=== PATIENT | male | born 1960 | race Hispanic/Latino ===

== ENCOUNTER 2017-10-28 22:30 | Emergency (ER) | payer SELFPAY ==
[~2017-10-28] VITALS: Ht 152.4 cm; Wt 45.0 kg
[2017-10-28 23:49] VITALS: BP 120/67
== END 2017-10-28 23:49 | disposition home or self-care (01) | DRG 897 ==
LOC: ED 22:30
DX: F10.129 Alcohol abuse with intoxication, unspecified (principal)

== ENCOUNTER 2018-01-06 21:55 | Emergency (ER) | payer SELFPAY ==
[~2018-01-06] VITALS: Ht 147.3 cm; Wt 52.0 kg
[2018-01-06 22:31] LABS: HEMATOCRIT 36.7 % (39.0-50.0); HEMOGLOBIN 12.2 g/dl (14.0-18.0); IMMATURE GRANULOCYTES 0.7 % (0.0-5.0); MEAN CELL VOLUME 93.9 fL CALC (80.0-100.0); MEAN CORPUSCULAR HGB 31.2 pG CALC (26.0-32.0); MEAN CORPUSCULAR HGB CONC 33.2 g/L CALC (32.0-36.0); NEUT# 3.33 thou/uL (1.82-7.42); RED BLOOD COUNT 3.91 mill/uL (4.70-6.10); RED CELL DISTRI WIDTH 13.2 % (11.5-15.5)
[2018-01-06 22:32] LABS: URINE BILIRUBIN - DIPSTICK NEGATIVE (NEGATIVE); URINE BLOOD DIPSTICK NEGATIVE (NEGATIVE); URINE COLOR YELLOW; URINE GLUCOSE - DIPSTICK NEGATIVE (NEGATIVE); URINE KETONE NEGATIVE (NEGATIVE); URINE LEUK ESTERASE NEGATIVE (NEGATIVE); URINE NITRITE - DIPSTICK NEGATIVE (Negative); URINE PROTEIN - DIPSTICK NEGATIVE (NEG-TRACE); URINE SPECIFIC GRAVITY <=1.005; URINE UROBILINOGEN - DIPSTICK 0.2 E.U./dL (0.2)
[2018-01-06 22:33] LABS: URINE CLARITY CLEAR
[2018-01-06 22:37] LABS: BARBITURATES NEGATIVE (NEGATIVE); COCAINE NEGATIVE (NEGATIVE); METHADONE NEGATIVE (NEGATIVE); OXCYCODONE NEGATIVE (NEGATIVE); TETRAHYDROCANNABIONOL NEGATIVE (NEGATIVE); TRICYLIC ANTIDEPRESSANTS NEGATIVE (NEGATIVE)
[2018-01-06 22:44] LABS: ALBUMIN 3.9 g/dL (3.2-5.0); ALKALINE PHOSPHATASE 78 u/l (38-126); ANION GAP 20 (6-22 (CALC)); BILIRUBIN, TOTAL 0.1 mg/dL (0.0-1.4); BUN 8 mg/dL (9-20); BUN/CREATININE RATIO 13 (12-20 (CALC)); CARBON DIOXIDE 19 mmol/l (22-30); CHLORIDE 112 mmol/l (95-108); CREATININE 0.6 mg/dL (0.7-1.3); GFR > 60 ML/MIN (>=60 (CALC)); GFR FOR AFR.AMER. > 60 ML/MIN (>=60 (CALC)); POTASSIUM 3.5 mmol/l (3.5-5.1); SGOT/AST 23 u/l (17-59); SGPT/ALT 34 u/l (21-72); SODIUM 146 mmol/l (137-146); TOTAL PROTEIN 6.9 g/dL (6.3-8.2)
[2018-01-06 23:10] LABS: ETHYL ALCOHOL 352 mg/dl (0-30)
[2018-01-07 01:59] VITALS: BP 107/59
== END 2018-01-07 01:58 | DRG 999 ==
LOC: ED 21:55 → EDBD 21:55 → ED 22:30 → EDBD 22:30 → ED 01-07 01:58
PROVIDERS: Emergency Medicine
PROC: 0T9B70Z Drainage of Bladder with Drainage Device, Via Natural or Artificial Opening (ICD-10-PCS; principal; 2018-01-06)
DX: S02.32XA Fracture of orbital floor, left side, initial encounter for closed fracture (principal); S02.19XA Other fracture of base of skull, initial encounter for closed fracture; S00.81XA Abrasion of other part of head, initial encounter; W18.30XA Fall on same level, unspecified, initial encounter; Y92.410 Unspecified street and highway as the place of occurrence of the external cause; F10.129 Alcohol abuse with intoxication, unspecified

== ENCOUNTER 2022-06-19 00:25 | Emergency (ER) | payer SELFPAY ==
[~2022-06-19] VITALS: Ht 154.9 cm; Wt 65.0 kg
[2022-06-19 00:56] LABS: BASO% 0.9 % (0-3); EOS% 4.9 % (0-8); HEMATOCRIT 35.4 % (39.0-50.0); HEMOGLOBIN 11.6 g/dl (14.0-18.0); IMMATURE GRANULOCYTES 0.5 % (0.0-5.0); LYMPH% 39.9 % (15-41); MEAN CELL VOLUME 91.2 fL CALC (80.0-100.0); MEAN CORPUSCULAR HGB 29.9 pG CALC (26.0-32.0); MEAN CORPUSCULAR HGB CONC 32.8 g/dL CAL (32.0-36.0); MONO% 7.3 % (2-13); NEUT# 2.54 thou/uL (1.82-7.42); NEUT% 46.5 % (42-76); RED BLOOD COUNT 3.88 mill/uL (4.70-6.10); RED CELL DISTRI WIDTH 13.4 % (11.5-15.5)
[2022-06-19 01:08] LABS: ALBUMIN 3.6 g/dL (3.2-5.0); ALKALINE PHOSPHATASE 84 u/l (38-126); ANION GAP 13 (6-22 (CALC)); BUN 5 mg/dL (9-20); BUN/CREATININE RATIO 8 (12-20 (CALC)); CARBON DIOXIDE 21 mmol/l (22-30); CHLORIDE 114 mmol/l (95-108); CREATININE 0.6 mg/dL (0.7-1.3); ETHYL ALCOHOL 292 mg/dl (0-30); GFR FOR AFR.AMER. > 60 ML/MIN (>=60 (CALC)); GFR OTHER RACES > 60 ML/MIN (>=60 (CALC)); MAGNESIUM 1.9 mg/dL (1.6-2.3); POTASSIUM 3.3 mmol/l (3.5-5.1); SGOT/AST 28 u/l (17-59); SODIUM 145 mmol/l (137-146); TOTAL PROTEIN 6.6 g/dL (6.3-8.2)
[2022-06-19 03:02] LABS: URINE BILIRUBIN - DIPSTICK NEGATIVE (NEGATIVE); URINE BLOOD DIPSTICK SMALL (NEGATIVE); URINE COLOR YELLOW; URINE GLUCOSE - DIPSTICK NEGATIVE (NEGATIVE); URINE KETONE NEGATIVE (NEGATIVE); URINE PROTEIN - DIPSTICK NEGATIVE (NEG-TRACE); URINE UROBILINOGEN - DIPSTICK 0.2 E.U./dL (0.2)
[2022-06-19 03:03] LABS: URINE LEUK ESTERASE NEGATIVE (NEGATIVE); URINE NITRITE - DIPSTICK NEGATIVE (Negative)
[2022-06-19 03:11] LABS: URINE BACTERIA RARE hpf; URINE EPITHELIAL CELLS RARE EPI/hpf (0-FEW); URINE WBC 0-2 WBC/hpf (0-5)
[2022-06-19 13:49] VITALS: BP 117/61
== END 2022-06-19 13:50 | disposition home or self-care (01) | DRG 897 ==
LOC: ED 00:25
PROVIDERS: Family Medicine
DX: F10.129 Alcohol abuse with intoxication, unspecified (principal); Y90.6 Blood alcohol level of 120-199 mg/100 ml; F17.210 Nicotine dependence, cigarettes, uncomplicated

== ENCOUNTER 2022-09-16 17:52 | Emergency (ER) | payer SELFPAY ==
[~2022-09-16] VITALS: Ht 154.9 cm; Wt 50.0 kg
[2022-09-16 19:12] LABS: BASO% 0.5 % (0-3); EOS% 4.5 % (0-8); HEMOGLOBIN 13.1 g/dl (14.0-18.0); IMMATURE GRANULOCYTES 0.2 % (0.0-5.0); LYMPH% 20.9 % (15-41); MEAN CELL VOLUME 90.7 fL CALC (80.0-100.0); MEAN CORPUSCULAR HGB 29.7 pG CALC (26.0-32.0); MEAN CORPUSCULAR HGB CONC 32.8 g/dL CAL (32.0-36.0); MONO% 5.2 % (2-13); NEUT# 4.23 thou/uL (1.82-7.42); NEUT% 68.7 % (42-76); RED BLOOD COUNT 4.41 mill/uL (4.70-6.10); RED CELL DISTRI WIDTH 14.1 % (11.5-15.5)
[2022-09-16 19:33] LABS: ALKALINE PHOSPHATASE 104 u/l (38-126); BUN 9 mg/dL (9-20); BUN/CREATININE RATIO 14 (12-20 (CALC)); CARBON DIOXIDE 23 mmol/l (22-30); CHLORIDE 109 mmol/l (95-108); CREATININE 0.6 mg/dL (0.7-1.3); GFR FOR AFR.AMER. > 60 ML/MIN (>=60 (CALC)); GFR OTHER RACES > 60 ML/MIN (>=60 (CALC)); SGOT/AST 40 u/l (17-59); SODIUM 146 mmol/l (137-146); TOTAL PROTEIN 7.9 g/dL (6.3-8.2)
[2022-09-16 19:34] LABS: ALBUMIN 4.6 g/dL (3.2-5.0); ANION GAP 18 (6-22 (CALC)); BILIRUBIN, TOTAL 0.2 mg/dL (0.2-1.3)
[2022-09-16 19:35] LABS: ETHYL ALCOHOL 390 mg/dl (0-30)
[2022-09-16 20:01] VITALS: BP 159/89
[2022-09-16 20:16] VITALS: BP 161/90
[2022-09-16 22:44] VITALS: BP 146/95
== END 2022-09-16 20:35 | disposition home or self-care (01) | DRG 897 ==
LOC: ED 17:52
PROVIDERS: Family Medicine
DX: F10.129 Alcohol abuse with intoxication, unspecified (principal); Y90.8 Blood alcohol level of 240 mg/100 ml or more

== ENCOUNTER 2023-01-15 17:27 | Observation (INO) | payer SELFPAY ==
[2023-01-15] VITALS (15 sets, daily range): BP systolic 120–173; BP diastolic 52–78
[~2023-01-15] VITALS: Ht 154.9 cm; Wt 63.0 kg
--- NOTE | 2023-01-15 17:44 | NUR ---
TO ROOM 14 VIA EMS STRETCHER IN STABLE CONDITION WITH C/O LOWER BACK PAIN. REPORTS WORKING 5 DAYS AGO AND DRINKING A LOT YESTERDAY. STATES " BACK STARTED HURTING WHEN I WAS DRINKING"
[2023-01-15 18:27] LABS: BASO% 0.2 % (0-3); HEMATOCRIT 36.4 % (39.0-50.0); HEMOGLOBIN 12.1 g/dl (14.0-18.0); IMMATURE GRANULOCYTES 0.4 % (0.0-5.0); LYMPH% 4.6 % (15-41); MEAN CELL VOLUME 91.2 fL CALC (80.0-100.0); MEAN CORPUSCULAR HGB 30.3 pG CALC (26.0-32.0); MEAN CORPUSCULAR HGB CONC 33.2 g/dL CAL (32.0-36.0); MONO% 8.6 % (2-13); NEUT# 12.09 thou/uL (1.82-7.42); NEUT% 86.2 % (42-76); RED BLOOD COUNT 3.99 mill/uL (4.70-6.10)
--- NOTE | 2023-01-15 18:35 | NUR ---
PT RESTING WITH EYES CLOSSED, MONITOR SHOWS SR, PT VOICES APPRECIATION OF PAIN MEDICAITON. IVF INFUSING WITHOUT DIFFICULTY, SITE WNL.
[2023-01-15 18:41] LABS: ALBUMIN 3.9 g/dL (3.2-5.0); ALKALINE PHOSPHATASE 84 u/l (38-126); BUN 8 mg/dL (9-20); BUN/CREATININE RATIO 13 (12-20 (CALC)); CARBON DIOXIDE 22 mmol/l (22-30); CHLORIDE 101 mmol/l (95-108); CREATININE 0.6 mg/dL (0.7-1.3); GFR FOR AFR.AMER. > 60 ML/MIN (>=60 (CALC)); GFR OTHER RACES > 60 ML/MIN (>=60 (CALC)); LIPASE 37 u/l (23-300); POTASSIUM 3.4 mmol/l (3.5-5.1); SGOT/AST 35 u/l (17-59); TOTAL PROTEIN 7.7 g/dL (6.3-8.2)
[2023-01-15 18:47] LABS: ANION GAP 15 (6-22 (CALC)); BILIRUBIN, TOTAL 0.9 mg/dL (0.2-1.3); SODIUM 135 mmol/l (137-146)
[2023-01-15 19:24] LABS: URINE BILIRUBIN - DIPSTICK Negative (NEGATIVE); URINE BLOOD DIPSTICK Trace-lysed (NEGATIVE); URINE GLUCOSE - DIPSTICK Negative (NEGATIVE); URINE KETONE Negative (NEGATIVE); URINE LEUK ESTERASE Negative (NEGATIVE); URINE NITRITE - DIPSTICK Negative (Negative); URINE PROTEIN - DIPSTICK 30 mg/dL (NEG-TRACE); URINE UROBILINOGEN - DIPSTICK 0.2 E.U./dL (0.2)
[2023-01-15 19:26] LABS: URINE COLOR Yellow; URINE RBC 0-2 RBC/hpf (0-5); URINE WBC 0-2 WBC/hpf (0-5)
--- NOTE | 2023-01-15 19:30 | NUR ---
NO APPARENT DISTRESS AT THIS TME PT HAS CALL GIFFORD
--- NOTE | 2023-01-15 19:49 | NUR ---
PT IN NO APPARENT DISTRESS URINATED/ YELLOW/CLOUDY PT HAS CALL LIGHT
--- NOTE | 2023-01-15 20:59 | NUR ---
gave report to floor
--- NOTE | 2023-01-15 22:00 | NUR ---
PATIENT ADMITTED FROM ER VIA STRETCHER WITH ER STAFF IN ATTENDANCE. PATIENT IS ADMITTED FOR ABD PAIN, SEPSIS. PATIENT IS MOSTLY CHINESE SPEAKING ONLY. PATIENT ASSISTED TO THE STANDING SCALE AND THEN TO BED. CHRISTINA FROM RADIOLOGY HERE TO TRANSLATE. PATIENT IS ALERT AND ORIENTEDX3. PATIENT STATES THT HE LIVES WITH FRIENDS. STATES THAT HE HAD STOPED DRINKING ALCOHOL A FEW MONITHS AGO BUT THEN DID START DRINKING AGAIN YESTERDAY ON SUNDAY AND THEN THE PAIN STARTED. STATES THAT HE DID HAVE BM TODAY. DENIES ANY DIFFICULTY WITH URINATION. PATIENT IS NPO AND THIS WAS EXPLAINED TO HIM. IVF NS HUNG AND INFUSING VIA LAC SITE AT 150CC/HR. PATIENT RECEIVED BOLUS IN ER PRIOR TO COMING TO THE FLOOR. IV SITE IS HEALTHY WITH GOOD BLOOD RETURN. LUNGS ARE CLEAR. ABD IS SOFT WITH ACTIVE BS. NO PERIPHERAL EDEMA NOTED. PULSES ARE PALPABLE. PATIENT WAS INSTRUCTED REGUARDING THE ROOM AND SURROUNDINGS. INSTRUCTED ON USE OF THE NURSE CALL LIGHT AND TV REMOTE. SAFETY PRFECAUTIONS REVEIWED WITH PATIENT. CALL LIGHT IN REACH. WILL CONT TO MONITOR. DID SPEAK TO DR. ZAMORANO REGUARDING THE BOLUS THAT HE ORDERED-EXPLAINED THAT THE PATIENT RECIEVED PERSCRIBED BOLUS IN ER AND HE STATES TO D/C THE BOLUS ORDER AND START IVF NS 150CC/HR.
--- NOTE | 2023-01-15 23:58 | NUR ---
PATIENT RESTING IN BED AT THIS TIME. VOIDED 250CC OF SHAHEEN URINE IN URINAL. PATIENT WITH C/O ABD PAIN-MEDICATED WITH DILAUDID 1MG IVP ORDERED VIA LAC SITE. IVF NS PATENT AND INFUSING ORDERED AT 150CC/HR. SITE REMAINS HEALTHY WITH GOOD BLOOD RETURN. REMAINS NPO ORDERED. CALL LIGHT IN REACH. WILL CONT TO MONITOR.
[2023-01-16] VITALS (8 sets, daily range): BP systolic 135–173; BP diastolic 54–82
--- NOTE | 2023-01-16 02:43 | NUR ---
RESTING IN BED AT THIS TIME WITH EYES CLOSED AND RESPS ARE EVEN AND UNLABORED. IVF PATENT AND INFUSING VIA RAC SITE. REMAINS NPO AT THIS TIME ORDERED. CALL LIGHT IN REACH. WILL CONT TO MONITOR.
--- NOTE | 2023-01-16 04:56 | NUR ---
PATIENT RESTING IN BED WITH EYES CLOSED. RESPS ARE EVEN SAND UNLABORED AT THIS TIME. IVF NS PATENT AND INFUSING VIA LAC SITE AT 150CC/HR. SITE REMAINS HEALTHY. REMAINS NPO ORDERED. VOIDING SHAHEEN URINE IN URINAL. AFEBRILE AT THIS TIME. CALL LIGHT IN REACH. WILL CONT TO MONITOR.
[2023-01-16 05:22] LABS: BASO% 0.2 % (0-3); EOS% 0.1 % (0-8); HEMATOCRIT 33.2 % (39.0-50.0); IMMATURE GRANULOCYTES 0.1 % (0.0-5.0); LYMPH% 5.3 % (15-41); MEAN CORPUSCULAR HGB 30.8 pG CALC (26.0-32.0); MEAN CORPUSCULAR HGB CONC 33.1 g/dL CAL (32.0-36.0); MONO% 7.1 % (2-13); NEUT# 8.25 thou/uL (1.82-7.42); NEUT% 87.2 % (42-76); RED BLOOD COUNT 3.57 mill/uL (4.70-6.10); RED CELL DISTRI WIDTH 14.2 % (11.5-15.5)
[2023-01-16 05:51] LABS: ALKALINE PHOSPHATASE 72 u/l (38-126); ANION GAP 11 (6-22 (CALC)); BILIRUBIN, TOTAL 0.8 mg/dL (0.2-1.3); BUN 8 mg/dL (9-20); BUN/CREATININE RATIO 12 (12-20 (CALC)); CARBON DIOXIDE 20 mmol/l (22-30); CHLORIDE 109 mmol/l (95-108); CREATININE 0.7 mg/dL (0.7-1.3); GFR FOR AFR.AMER. > 60 ML/MIN (>=60 (CALC)); GFR OTHER RACES > 60 ML/MIN (>=60 (CALC)); POTASSIUM 3.3 mmol/l (3.5-5.1); SGOT/AST 23 u/l (17-59); SODIUM 136 mmol/l (137-146)
[2023-01-16 05:54] LABS: ALBUMIN 2.9 g/dL (3.2-5.0); TOTAL PROTEIN 5.9 g/dL (6.3-8.2)
--- NOTE | 2023-01-16 08:00 | NUR ---
PT IN BED WITH HOB UP, EATING BREAKFAST. PT ALERT AND ORIENTED WITH NO C/O PAIN AT THIS TIME. IV SITE TO LAC CLEAN AND INTACT WITH NS @ 150 ML/HR INFUSING. LUNG SOUNDS CLEAR. PT ABD SOFT WITH BS ACTIVE. PT IS USING THE URINAL AT BEDSIDE. PT HAS CALL LIGHT WITHIN REACH AND ALL SAFETY MEASURES IN PLACE AT THIS TIME.
--- NOTE | 2023-01-16 12:00 | NUR ---
PT IV SITE OUT,NEW IV RESARTED # 22 TO RAC CLEAN AND FLUSHING WELL. PT TOLERATED WELL. PT HAS CALL LIGHT WITHIN REACH AND SAFETY MEASURES IN PLACE.
--- NOTE | 2023-01-16 16:00 | NUR ---
PT IN BESTING WITH EYES CLOSED, EYES OPENED TO VOICE. PT HAS NO C/O PAIN AT THIS TIME. PT HAS NO CHANGE IN STATUS AT THIS TIME.
--- NOTE | 2023-01-16 22:15 | NUR ---
PATIENT RESTING IN BED AT THIS TIME-AWAKE ALERT AND ORIENTED-PATIENT IS TAM[place] SPEAKING MOSTLY. PATIENT STATES THAT HIS BACK PAIN IS ONLY A LITTLE. IVF PATENT AND INFUSING VIA LAC SITE ORDERED. TAKING PO FLUIDS AND TOLERATING WELL. VOIDING YELLOW URINEIN URINAL. PATIENT STATES NO BM TODAY. ABD IS SOFT WITH ACTIVE BS. NO PERIPHERAL EDEMA-PULSES ARE PALPABLE. CALL LIGHT IN REACH. WILL CONT TO MONITOR.
[2023-01-17] VITALS (7 sets, daily range): BP systolic 149–185; BP diastolic 64–74
--- NOTE | 2023-01-17 01:00 | NUR ---
PATIENT RESTING IN BED AT THIS TIME WITH EYES CLOSED. RESPS ARE EVEN AND UNLABORED IVF PATENT AND INFUSING VIA LAC SITE. CALL LIGHT IN REACH. WILL CONT TO MONITOR.
--- NOTE | 2023-01-17 05:00 | NUR ---
PATIENT RESTING IN BED WITH EYES CLOSED AND RESPS ARE EVEN AND UNLABORED. IVF PATENT AND INFUSING VIA LAC SITE ORDERED. CONT TO USE URINAL AT BEDSIDE. CALL LIGHT IN REACH. WILL CONT TO MONITOR.
[2023-01-17 05:35] LABS: BASO% 0.3 % (0-3); EOS% 0.6 % (0-8); HEMATOCRIT 31.6 % (39.0-50.0); HEMOGLOBIN 10.5 g/dl (14.0-18.0); IMMATURE GRANULOCYTES 0.7 % (0.0-5.0); LYMPH% 11.2 % (15-41); MEAN CELL VOLUME 90.8 fL CALC (80.0-100.0); MEAN CORPUSCULAR HGB 30.2 pG CALC (26.0-32.0); MEAN CORPUSCULAR HGB CONC 33.2 g/dL CAL (32.0-36.0); MONO% 10.4 % (2-13); NEUT# 5.42 thou/uL (1.82-7.42); NEUT% 76.8 % (42-76); RED BLOOD COUNT 3.48 mill/uL (4.70-6.10); RED CELL DISTRI WIDTH 13.6 % (11.5-15.5)
[2023-01-17 06:11] LABS: ALBUMIN 2.8 g/dL (3.2-5.0); ALKALINE PHOSPHATASE 69 u/l (38-126); ANION GAP 9 (6-22 (CALC)); BUN 6 mg/dL (9-20); BUN/CREATININE RATIO 10 (12-20 (CALC)); CARBON DIOXIDE 22 mmol/l (22-30); CHLORIDE 106 mmol/l (95-108); CREATININE 0.6 mg/dL (0.7-1.3); GFR FOR AFR.AMER. > 60 ML/MIN (>=60 (CALC)); GFR OTHER RACES > 60 ML/MIN (>=60 (CALC)); MAGNESIUM 1.7 mg/dL (1.6-2.3); POTASSIUM 3.3 mmol/l (3.5-5.1); SGOT/AST 26 u/l (17-59); SODIUM 135 mmol/l (137-146); TOTAL PROTEIN 5.8 g/dL (6.3-8.2)
[2023-01-17 06:21] LABS: BILIRUBIN, TOTAL 0.4 mg/dL (0.2-1.3)
--- NOTE | 2023-01-17 07:07 | NUR ---
PT RESTING IN LOW FOWLERS POSITION. PT A/O PT HEARTRHYTHM NORM RESPIRAITONS ON ROOMAIR . IV SITE NOTED. PT DENIES ADDITIONAL NEEDS AT THE TIME ALL SAFETY PRECAUTIONS IN PLACE WITH CALL LIGHT IN REACH .
--- NOTE | 2023-01-17 11:59 | NUR ---
PT C/O PAIN PROVIDERS AWARE IN ROOM WHEN PT COMPLAINT MADE. PT DENIES HUNGER STATES LIKES TO DRINK LOTS OF WATER. PT AWARE OF PLAN OF CARE.
--- NOTE | 2023-01-17 12:29 | NUR ---
S: AIMEE LIN is a 62 M who presents with PNEUMONIA. O: VS: BP 149/73 mmhg, P 59 bpm, RR 16bpm ,T 97.9 F W 63 kg, HT 61 in, Scr= 0.6 mg/dL,CrCl= 96.9 mL/min A: Preliminary blood culture is growing gram positive cocci in 4/4 vials. P: Patient is on azithromycin 500mg iv q24h and ceftriaxone 1gm iv q24h. Vancomycin ordered for pharmacy to dose. Start Vancomycin 1gm IV Q12H. Vancomycin trough is drawn before the 4th dose on 01/17/23 @ 0830. Vancomycin goal trough is between 15-20 mcg/ml. Pharmacy will follow and or advise on antibiotics use as needed.
--- NOTE | 2023-01-17 16:45 | NUR ---
PT RESTING IN LOW FOWLERS POSITION PT DENIES ADDITIONAL NEEDS AT THE TIME ALL SAFETY PRECAUTIONS IN PLACE WITH CALL LIGHT IN REACH.
[2023-01-18 04:39] VITALS: BP 172/78
[2023-01-18 05:53] LABS: BASO% 0.3 % (0-3); EOS% 1.7 % (0-8); HEMATOCRIT 31.2 % (39.0-50.0); HEMOGLOBIN 10.5 g/dl (14.0-18.0); IMMATURE GRANULOCYTES 0.2 % (0.0-5.0); MEAN CORPUSCULAR HGB CONC 33.7 g/dL CAL (32.0-36.0); MONO% 10.8 % (2-13); NEUT# 4.96 thou/uL (1.82-7.42); RED BLOOD COUNT 3.39 mill/uL (4.70-6.10); RED CELL DISTRI WIDTH 13.7 % (11.5-15.5)
[2023-01-18 05:54] VITALS: BP 170/70
[2023-01-18 05:59] LABS: ALBUMIN 2.9 g/dL (3.2-5.0); ALKALINE PHOSPHATASE 67 u/l (38-126); ANION GAP 10 (6-22 (CALC)); BILIRUBIN, TOTAL 0.5 mg/dL (0.2-1.3); BUN 9 mg/dL (9-20); BUN/CREATININE RATIO 12 (12-20 (CALC)); CARBON DIOXIDE 24 mmol/l (22-30); CHLORIDE 108 mmol/l (95-108); CREATININE 0.7 mg/dL (0.7-1.3); GFR FOR AFR.AMER. > 60 ML/MIN (>=60 (CALC)); GFR OTHER RACES > 60 ML/MIN (>=60 (CALC)); MAGNESIUM 1.8 mg/dL (1.6-2.3); POTASSIUM 3.1 mmol/l (3.5-5.1); SGOT/AST 25 u/l (17-59); SODIUM 138 mmol/l (137-146); TOTAL PROTEIN 5.8 g/dL (6.3-8.2)
--- NOTE | 2023-01-18 07:19 | NUR ---
PT RESTING IN LOW FOWLERS POSITION PT A/O HEART RHYTHM NORM RESPIRATIONS ON ROOM AIR. IV SITE NOTED. PT DENIES ADDITIONAL NEEDS AT THE TIME ALL SAFETY PRECAUTIONS IN PLACE WITH CALL LIGHT IN REACH.
[2023-01-18 07:49] VITALS: BP 173/72
--- NOTE | 2023-01-18 12:37 | NUR ---
PT RESTING NOW IN LOW FOWLERS POSITION APPLICATION OF LIDOCAIN PATCH. AND NEW IV INSERTION TO RIGHT LOWER WRIST AREA 22G. INFUSING NOW WITH ABX.
--- NOTE | 2023-01-18 16:23 | NUR ---
PT DENIES PAIN MEDICATION AT THE TIME PT STATED LIDOCAINE PATCH HELPING.
[2023-01-18 16:29] VITALS: BP 146/61
[2023-01-18 20:07] VITALS: BP 161/65
[2023-01-19 03:51] VITALS: BP 160/64
[2023-01-19 06:12] LABS: BASO% 0.5 % (0-3); EOS% 3.3 % (0-8); HEMATOCRIT 32.4 % (39.0-50.0); HEMOGLOBIN 10.7 g/dl (14.0-18.0); LYMPH% 14.2 % (15-41); MEAN CELL VOLUME 91.8 fL CALC (80.0-100.0); MEAN CORPUSCULAR HGB 30.3 pG CALC (26.0-32.0); MONO% 10.3 % (2-13); NEUT# 4.76 thou/uL (1.82-7.42); NEUT% 71.7 % (42-76); RED BLOOD COUNT 3.53 mill/uL (4.70-6.10); RED CELL DISTRI WIDTH 13.7 % (11.5-15.5)
[2023-01-19 06:18] LABS: ALKALINE PHOSPHATASE 70 u/l (38-126); ANION GAP 10 (6-22 (CALC)); BILIRUBIN, TOTAL 0.5 mg/dL (0.2-1.3); BUN 10 mg/dL (9-20); BUN/CREATININE RATIO 14 (12-20 (CALC)); CARBON DIOXIDE 25 mmol/l (22-30); CHLORIDE 109 mmol/l (95-108); CREATININE 0.7 mg/dL (0.7-1.3); GFR FOR AFR.AMER. > 60 ML/MIN (>=60 (CALC)); GFR OTHER RACES > 60 ML/MIN (>=60 (CALC)); MAGNESIUM 1.9 mg/dL (1.6-2.3); POTASSIUM 3.1 mmol/l (3.5-5.1); SGOT/AST 22 u/l (17-59); SODIUM 141 mmol/l (137-146)
--- NOTE | 2023-01-19 07:00 | NUR ---
RECEIVED BEDSIDE REPORT FROM PM RN. PT IS LYING IN BED WITH EYES CLOSED. ALL SAFETY MEASURES IN PLACE. VSS. NO NEEDS AT THIS TIME.
[2023-01-19 07:17] VITALS: BP 156/55
--- NOTE | 2023-01-19 13:33 | NUR ---
REPORT CALLED TO JACKIE HARRINGTON AT [facility]. ALL QUESTIONS ANSWERED. TE[employer]NICAL [employer]PPORT [employer] GIVEN REPORT FOR TRANSFER. PT NEXT OF KIN JORGE NOTIFIED AND IN AGREEMENT. END OF MY CARE.
== END 2023-01-19 13:39 | disposition short-term general hospital (02) | DRG 871 ==
LOC: ED 17:27 → ED-I 19:58 → ED 20:10 → MS2 20:11
PROVIDERS: Nurse Practitioner; Nurse Practitioner Family; ADMIT Surgery; ATTEND Student in an Organized Health Care Education/Training Program
DX: A40.1 Sepsis due to streptococcus, group B (principal); J18.9 Pneumonia, unspecified organism; E87.20 Acidosis, unspecified; M47.816 Spondylosis without myelopathy or radiculopathy, lumbar region; M47.814 Spondylosis without myelopathy or radiculopathy, thoracic region; M25.462 Effusion, left knee; K40.20 Bilateral inguinal hernia, without obstruction or gangrene, not specified as recurrent; K57.30 Diverticulosis of large intestine without perforation or abscess without bleeding; F10.10 Alcohol abuse, uncomplicated; R16.0 Hepatomegaly, not elsewhere classified; I08.1 Rheumatic disorders of both mitral and tricuspid valves; I27.20 Pulmonary hypertension, unspecified; Z20.822 Contact with and (suspected) exposure to COVID-19
CPT/HCPCS: J1650; Q9967; S0164

== ENCOUNTER 2024-03-30 15:23 | Emergency (ER) | payer SELFPAY ==
[2024-03-30] VITALS (10 sets, daily range): BP systolic 127–168; BP diastolic 67–94
[~2024-03-30] VITALS: Ht 154.9 cm; Wt 65.0 kg
[2024-03-30] MEDS ORDERED: THIAMINE HCL 100 MG/ML 2ML VIAL IV ONE (15:30)
[2024-03-30] MEDS ORDERED: FOLIC ACID 5 MG/ML IV ONE (15:30)
[2024-03-30] MEDS ORDERED: SODIUM CHLORIDE 0.9% 1,000 ML IV ONE (15:30)
[2024-03-30 16:05] LABS: BASO% 0.6 % (0-3); EOS% 4.1 % (0-8); HEMATOCRIT 36.8 % (39.0-50.0); HEMOGLOBIN 11.9 g/dl (14.0-18.0); IMMATURE GRANULOCYTES 0.4 % (0.0-5.0); LYMPH% 30.9 % (15-41); MEAN CELL VOLUME 96.1 fL CALC (80.0-100.0); MEAN CORPUSCULAR HGB 31.1 pG CALC (26.0-32.0); MEAN CORPUSCULAR HGB CONC 32.3 g/dL CAL (32.0-36.0); MONO% 7.2 % (2-13); NEUT# 2.77 thou/uL (1.82-7.42); NEUT% 56.8 % (42-76); RED BLOOD COUNT 3.83 mill/uL (4.70-6.10); RED CELL DISTRI WIDTH 12.9 % (11.5-15.5)
[2024-03-30 16:26] LABS: ALKALINE PHOSPHATASE 88 u/l (38-126); BILIRUBIN, TOTAL 0.3 mg/dL (0.2-1.3); BUN 7 mg/dL (8-23); BUN/CREATININE RATIO 12 (12-20 (CALC)); CHLORIDE 116 mmol/l (95-108); CREATININE 0.6 mg/dL (0.7-1.3); ESTIMATED GFR 110 ML/MIN (>=90 (CALC)); POTASSIUM 3.3 mmol/l (3.5-5.1); SODIUM 147 mmol/l (137-146); TOTAL PROTEIN 6.8 g/dL (6.3-8.2)
[2024-03-30 16:39] LABS: ALBUMIN 3.7 g/dL (3.2-5.0); ANION GAP 15 (6-22 (CALC)); CARBON DIOXIDE 19 mmol/l (22-30); SGOT/AST 41 u/l (19-48)
[2024-03-30 16:40] LABS: ETHYL ALCOHOL 343 mg/dl (0-30)
[2024-03-30 17:26] LABS: URINE BILIRUBIN - DIPSTICK Negative (NEGATIVE); URINE BLOOD DIPSTICK Negative (NEGATIVE); URINE COLOR Straw; URINE GLUCOSE - DIPSTICK Negative (NEGATIVE); URINE KETONE Negative (NEGATIVE); URINE LEUK ESTERASE Negative (NEGATIVE); URINE NITRITE - DIPSTICK Negative (Negative); URINE PH 5.5 (4.5-8.0); URINE PROTEIN - DIPSTICK Negative (NEG-TRACE); URINE SPECIFIC GRAVITY <=1.005; URINE UROBILINOGEN - DIPSTICK 0.2 E.U./dL (0.2)
== END 2024-03-30 20:45 | disposition home or self-care (01) | DRG 897 ==
LOC: ED 15:23
PROVIDERS: Family Medicine
DX: F10.129 Alcohol abuse with intoxication, unspecified (principal); Y90.8 Blood alcohol level of 240 mg/100 ml or more
CPT/HCPCS: J3411; Q9967